=== PATIENT | female | born 1935 | race Caucasian/White ===

== ENCOUNTER 2017-07-14 09:57 | Inpatient (IN) | payer MEDICARE, OTHER ==
[~2017-07-14] VITALS: Ht 167.6 cm; Wt 55.9 kg
[2017-07-14] MEDS ORDERED: NS IV 500 ML 500 ML IV ONE (10:18)
[2017-07-14 10:27] VITALS: BP 141/107
--- NOTE | 2017-07-14 10:27 | ED Fall/Injury ---
General Stated Complaint: FALL Source: patient, family (son), EMS Exam Limitations: clinical condition History of Present Illness Time seen by provider: 10:14 Initial Comments Patient present to ER by EMS with chief complaint that she had a fall 6 days ago and had been doing okay walking around using her power chair has typical but having quite a bit of pain. Son reports that she had resisted going to see the doctor for it. She has a history of chronic bilateral hip disease and has not had any surgery done to them. He said she was doing fine last night when he helped her get to bed but this morning when he went to check on her she was not acting right and said that she needed to go to the ER area EMS reports they have given her 400 of the first liter of saline start an IV in her left antecubital space and 100 g of fentanyl. Patient is having some flaccid paralysis in her left arm which according the son is new. She has a history of congestive heart failure but no strokes. Patient denies any chest pain or shortness of breath. Son reports she's had occasional dry cough. Last known well time was about 2129 when she went to bed yesterday, 13 hours ago. 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 He says the patient refused to have anything done for. She did not feel that she would survive general anesthesia to have the surgery to have it removed. The family has been dressing it with gauze dressings. Allergies and Home Medications Allergies Coded Allergies: No Allergy Information Available (Unverified , 07/14/17) Constitutional: see HPI (patient is unable to give a meaningful review of symptoms. While) Past Cjwckgr-Rxjzzj-Skgemt Hx Patient Social History Alcohol Use: Denies Use Recreational Drug Use: No Smoking Status: Never a Smoker Physical Exam Vital Signs Vital Sign - Last 12Hours 07/14/17 10:27 Temp 98.5 Resp 16 B/P (MAP) 141/107 (118) Pulse Ox 95 O2 Delivery Nasal Cannula Capillary Refill : General Appearance: moderate distress HEENT: No pharynx normal (very dry oral mucous membranes), other (right eye days but will follow stimuli across midline with her eyes) Neck: non-tender, supple Cardiovascular: normal peripheral pulses, regular rate, rhythm, no JVD, other ( trace pedal edema) Respiratory: chest non-tender, lungs clear, normal breath sounds, no respiratory distress, no accessory muscle use Peripheral Pulses: 1+ Dorsalis Pedis (R), 1+ Left Dors-Pedis (L), 2+ Radial Pulses (R), 2+ Radial Pulses (L) Gastrointestinal: normal bowel sounds, non tender, soft, no organomegaly, no pulsatile mass Neurologic/Psychiatric: alert, other (oriented to self only answers one-word appropriate answers. Left arm flaccid paralysis.) Skin: normal color, warm/dry, other (4 x 6 cm irregular, erythematous plaque on the medial right lower extremity consistent with a skin cancer.) Thompson Coma Score Best Eye Response: (4) Open Spontaneously Best Verbal Response: (4) Confused Conversation Best Motor Response: (6) Obeys Commands Jesus Total: 14 Progress/Results/Core Measures Results/Orders Lab Results Laboratory Tests Test 07/14/17 11:15 07/14/17 11:55 07/14/17 12:11 Range/Units Urine Color YELLOW Urine Clarity CLEAR Urine pH 5 5-9 Urine Specific Point 1.020 1.016-1.022 Urine Protein 1+ H NEGATIVE Urine Glucose (UA) NEGATIVE NEGATIVE Urine Ketones NEGATIVE NEGATIVE Urine Nitrite NEGATIVE NEGATIVE Urine Bilirubin NEGATIVE NEGATIVE Urine Urobilinogen 1 NORMAL MG/DL Urine Leukocyte Esterase 1+ H NEGATIVE Urine RBC (Auto) NEGATIVE NEGATIVE Urine RBC NONE /HPF Urine WBC RARE /HPF Urine Squamous Epithelial Cells 2-5 /HPF Urine Crystals NONE /LPF Urine Bacteria TRACE /HPF Urine Casts PRESENT /LPF Urine Hyaline Casts 25-50 H /LPF Urine Mucus NEGATIVE /LPF Urine Culture Indicated NO White Blood Count 53.9 *H 4.3-11.0 10^3/uL Red Blood Count 3.82 L 4.35-5.85 10^6/uL Hemoglobin 11.2 L 11.5-16.0 G/DL Hematocrit 35 35-52 % Mean Corpuscular Volume 91 80-99 FL Mean Corpuscular Hemoglobin 29 25-34 PG Mean Corpuscular Hemoglobin Concent 32 32-36 G/DL Red Cell Distribution Width 14.9 H 10.0-14.5 % Platelet Count 348 130-400 10^3/uL Mean Platelet Volume 10.2 7.4-10.4 FL Neutrophils (%) (Auto) 95 H 42-75 % Lymphocytes (%) (Auto) 1 L 12-44 % Monocytes (%) (Auto) 4 0-12 % Eosinophils (%) (Auto) 0 0-10 % Basophils (%) (Auto) 0 0-10 % Neutrophils # (Auto) 51.1 H 1.8-7.8 X 10^3 Lymphocytes # (Auto) 0.5 L 1.0-4.0 X 10^3 Monocytes # (Auto) 2.2 H 0.0-1.0 X 10^3 Eosinophils # (Auto) 0.0 0.0-0.3 10^3/uL Basophils # (Auto) 0.1 0.0-0.1 10^3/uL Neutrophils % (Manual) 96 % Lymphocytes % (Manual) 0 % Monocytes % (Manual) 4 % Polychromasia SLIGHT Basophilic Stippling SLIGHT Crenated Cell SLIGHT Sodium Level 142 135-145 MMOL/L Potassium Level 4.4 3.6-5.0 MMOL/L Chloride Level 104 98-107 MMOL/L Carbon Dioxide Level 26 21-32 MMOL/L Anion Gap 12 5-14 MMOL/L Blood Urea Nitrogen 63 H 7-18 MG/DL Creatinine 0.93 0.60-1.30 MG/DL Estimat Glomerular Filtration Rate 58 BUN/Creatinine Ratio 68 Glucose Level 101 70-105 MG/DL Calcium Level 9.3 8.5-10.1 MG/DL Magnesium Level 2.2 1.8-2.4 MG/DL Total Bilirubin 0.5 0.1-1.0 MG/DL Aspartate Amino Transf (AST/SGOT) 38 H 5-34 U/L Alanine Aminotransferase (ALT/SGPT) 24 0-55 U/L Alkaline Phosphatase 162 H 40-136 U/L Troponin I < 0.30 <0.30 NG/ML Total Protein 5.8 L 6.4-8.2 GM/DL Albumin 2.5 L 3.2-4.5 GM/DL Prothrombin Time 15.1 H 12.2-14.7 SEC INR Comment 1.2 0.8-1.4 Activated Partial Thromboplast Time 25 24-35 SEC Lactic Acid Level 1.09 0.50-2.00 MMOL/L B-Type Natriuretic Peptide 845.4 H <100.0 PG/ML My Orders Orders - MERY,MILKA J Chest 1 View, Ap/Pa Only (07/14/17 10:18) BNP (07/14/17 10:18) Cbc With Automated Diff (07/14/17 10:18) Comprehensive Metabolic Panel (07/14/17 10:18) Lactic Acid Analyzer (07/14/17 10:18) Magnesium (07/14/17 10:18) Troponin I (07/14/17 10:18) Ua Culture If Indicated (07/14/17 10:18) Saline Lock/Iv-Start (07/14/17 10:18) Ns Iv 500 Ml (Sodium Chloride 0.9%) (07/14/17 10:18) Ekg Tracing (07/14/17 10:18) Pelvis/Anay Hips 5> Views (07/14/17 10:18) Ct Head Wo-R/O Stroke (07/14/17 10:27) Ct Angio Head/Neck (07/14/17 11:57) Manual Differential (07/14/17 11:55) Sputum Culture (07/14/17 12:16) Protime With Inr (07/14/17 12:16) Partial Thromboplastin Time (07/14/17 12:16) O2 (07/14/17 12:16) Saline Lock/Iv-Start (07/14/17 12:16) Cefepime Injection (Maxipime Injection) (07/14/17 12:30) Vital Signs Adult Sepsis Patie Q1H (07/14/17 12:16) Remove Rings In Anticipation O (07/14/17 12:16) Iohexol Injection (Omnipaque 350 Mg/Ml 1 (07/14/17 12:45) Ns (Ivpb) (Sodium Chloride 0.9% Ivpb Bag (07/14/17 12:45) Vancomycin Injection (Vancomycin Injecti (07/14/17 13:15) Medications Given in ED Current Medications Medications Dose Ordered Sig/Monserrat Route Start Time Stop Time Status Last Admin Dose Admin Cefepime HCl 2000 mg/Sodium Chloride 50 ml @ 100 mls/hr ONCE ONCE IV 07/14/17 12:30 07/14/17 12:59 DC 07/14/17 12:58 100 MLS/HR Iohexol 75 ml ONCE ONCE IV 07/14/17 12:45 12/23/17 12:46 DC 07/14/17 12:49 75 ML Sodium Chloride 100 ml ONCE ONCE IV 07/14/17 12:45 07/14/17 12:46 DC 07/14/17 12:50 100 ML Sodium Chloride 500 ml @ 0 mls/hr Q0M ONCE IV 07/14/17 10:18 07/14/17 10:22 DC 07/14/17 12:22 1,000 MLS/HR Vancomycin HCl 1000 mg/Sodium Chloride 250 ml @ 250 mls/hr ONCE ONCE IV 07/14/17 13:15 07/14/17 14:14 DC 07/14/17 13:52 250 MLS/HR Vital Signs/I&O Vital Sign - Last 12Hours 07/14/17 10:27 Temp 98.5 Resp 16 B/P (MAP) 141/107 (118) Pulse Ox 95 O2 Delivery Nasal Cannula Progress Note #1: Time: 10:30 Progress Note Concern for stroke given left arm paralysis and right eye gaze deviation however the last known well time was probably time. Bed since she was not normal when he checked this morning at 5:30. We'll also x-ray her hips looking for fracture. We'll also look for source of her fall by getting a urinalysis, lab work and chest x-ray. Progress Note #2: Time: 12:12 Progress Note Patient is been bradycardic since she arrived. The son says that she has routinely bradycardic per history. Son reports the patient wishes to be DO NOT RESUSCITATE. Progress Note #3: Time: 14:50 Progress Note We discussed that despite aggressive fluids and antibiotics the patient is not making any significant changes at this time and that it may be later down the line that if we can do anything to fix her problem that a comfort care or hospice consult would be reasonable. The son has discussed this at length with his mother in the past and she has desired comfort cares especially if nothing further can be done so they're very open to this possibility. Communicated these concerns with full and she asked for a palliative care consult in addition to her other workup. Diagnostic Imaging Diagonstic Imaging: Xray Plain Films/CT/US/NM/MRI: chest (1v) Comments VIA [facility]. [place], [place] NAME: SHAE HOLT J MED REC#: [id number] PT STATUS: REG ER : 1935 PHYSICIAN: MILKA ORDONEZ MD ADMIT DATE: 07/14/17/ER Draft Date of Exam:07/14/17 CHEST 1 VIEW, AP/PA ONLY INDICATION: Fall. FINDINGS: There is cardiomegaly. There is some venous congestion. There is patchy bibasilar infiltrates. There is a left pleural effusion. There is no pneumothorax. The mediastinum is unremarkable. IMPRESSION: Patchy bibasilar infiltrates and a left pleural effusion. Cardiomegaly and some central pulmonary venous congestion Dictated on workstation # [id number] Dict: 07/14/17 1055 Trans: 07/14/17 1058 [facility] [id number] Interpreted by: SATHISH GONZALEZ MD Electronically signed by: Reviewed: Reviewed by Me Diagonstic Imaging: CT Plain Films/CT/US/NM/MRI: head (c/o) Comments No acute intracranial hemorrhage, mass effect, tumor seen. NAME: SHAE HOLT [facility] REC#: [id number] PT STATUS: REG ER : 1935 PHYSICIAN: MILKA ORDONEZ MD ADMIT DATE: 07/14/17/ER Draft Date of Exam:07/14/17 CT HEAD WO-R/O STROKE Clinical indication: Patient status post fall this morning. Patient has altered mental status. Patient unable to move left arm. Exam: Axial CT scan of the brain performed without IV contrast. Comparison: None. Findings: There is no evidence of acute cerebral infarct, intracranial hemorrhage, or gross mass effect. There are a few patchy areas of low-attenuation white matter changes of both cerebral hemispheres, suspected to represent chronic small vessel ischemic disease. There is normal solorio-white matter distinction. The brain parenchymal volume appears appropriate for patient's age. There is no significant midline shift or herniation. There is atherosclerotic disease involving the intradural vertebral arteries and bilateral cavernous carotid arteries. There is no evidence of hydrocephalus. The basal cisterns are unremarkable. The skull, extracranial soft tissue, and orbits are unremarkable. The paranasal sinuses are unremarkable. Impression: 1: There is no gross CT evidence of acute cerebral infarct, intracranial hemorrhage, brain herniation, or hydrocephalus. If there is continued concern for acute cerebral infarct, then MRI of the brain would better evaluate. 2: Age-related brain parenchymal changes with chronic small vessel ischemic disease. Dictated on workstation # [id number] Dict: 07/14/17 1041 Trans: 07/14/17 1047 [facility] [id number] Interpreted by: ALANNAH VIGIL MD Electronically signed by: Reviewed: Reviewed by Me Diagonstic Imaging: Xray Plain Films/CT/US/NM/MRI: pelvis Comments VIA [facility]. [place], [place] NAME: SHAE HOLT [facility] REC#: [id number] PT STATUS: REG ER : 1935 PHYSICIAN: MILKA ORDONEZ MD ADMIT DATE: 07/14/17/ER Draft Date of Exam:07/14/17 PELVIS/ANAY HIPS 5> VIEWS INDICATION: Fall. FINDINGS: The bones are osteopenic. There are degenerative changes in the spine. There are marked degenerative changes in both hips. There is no fracture or dislocation. IMPRESSION: Severe degenerative changes in the hips bilaterally without acute fracture or dislocation. Degenerative changes in the spine. Dictated on workstation # [id number] Dict: 07/14/17 1055 Trans: 07/14/17 1058 [facility] [id number] Interpreted by: SATHISH GONZALEZ MD Electronically signed by: Reviewed: Reviewed by Me Diagonstic Imaging: CT (angio) Plain Films/CT/US/NM/MRI: c-spine, head Reviewed: Reviewed by Me Consults Consults : Consults Notes Dr. Ashby, neurology at [facility] discussed case lab imaging and findings and he agrees this does not sound like a stroke given her lack of cranial nerve involvement and 4 extremity paralysis. He would recommend we go ahead and get a CT angiogram to evaluate the basilar arteries but he can't give anything else would explain her symptoms from a stroke/neurologic perspective. He recommends work her up for a metabolic toxicity versus sepsis. Departure Communication (Admissions) Time/Spoke to Admitting Phy: 14:30 Communication Discussed case lab imaging's with Dr. Snowden. Discussed the wide complex QRS run the EMS mentioned. Discussed her bradycardia. She would like cardiology consulted. Time/Spoke to Consulting Phy: 14:35 Communication/Consulting Discussed case lab imaging and findings and he would like to see the strip from EMS. Impression Impression: Primary Impression: Fall Qualified Codes: W19.XXXA - Unspecified fall, initial encounter Additional Impressions: Sepsis Qualified Codes: A41.9 - Sepsis, unspecified organism History of skin cancer of unknown type Disposition: ADMITTED INPATIENT Condition: Stable Admissions Decision to Admit Reason: Admit from ER (General) Decision to Admit/Date: Jul 14, 2017 Time/Decision to Admit Time: 14:38 Departure-Patient Inst. Referrals: ISABELA SMITH MD (PCP/Family) Primary Care Physician Copy Copies To 1: ISABELA SMITH MD, TITUS J Jul 14, 2017 10:27
--- NOTE | 2017-07-14 10:48 | Diagnostic Imaging Report ---
Clinical indication: Patient status post fall this morning. Patient has altered mental status. Patient unable to move left arm. Exam: Axial CT scan of the brain performed without IV contrast. Comparison: None. Findings: There is no evidence of acute cerebral infarct, intracranial hemorrhage, or gross mass effect. There are a few patchy areas of low-attenuation white matter changes of both cerebral hemispheres, suspected to represent chronic small vessel ischemic disease. There is normal solorio-white matter distinction. The brain parenchymal volume appears appropriate for patient's age. There is no significant midline shift or herniation. There is atherosclerotic disease involving the intradural vertebral arteries and bilateral cavernous carotid arteries. There is no evidence of hydrocephalus. The basal cisterns are unremarkable. The skull, extracranial soft tissue, and orbits are unremarkable. The paranasal sinuses are unremarkable. Impression: 1: There is no gross CT evidence of acute cerebral infarct, intracranial hemorrhage, brain herniation, or hydrocephalus. If there is continued concern for acute cerebral infarct, then MRI of the brain would better evaluate. 2: Age-related brain parenchymal changes with chronic small vessel ischemic disease. Dictated by: Dictated on workstation # [id number]
--- NOTE | 2017-07-14 10:59 | Diagnostic Imaging Report ---
INDICATION: Fall. FINDINGS: There is cardiomegaly. There is some venous congestion. There is patchy bibasilar infiltrates. There is a left pleural effusion. There is no pneumothorax. The mediastinum is unremarkable. IMPRESSION: Patchy bibasilar infiltrates and a left pleural effusion. Cardiomegaly and some central pulmonary venous congestion Dictated by: Dictated on workstation # [id number]
--- NOTE | 2017-07-14 10:59 | Diagnostic Imaging Report ---
INDICATION: Fall. FINDINGS: The bones are osteopenic. There are degenerative changes in the spine. There are marked degenerative changes in both hips. There is no fracture or dislocation. IMPRESSION: Severe degenerative changes in the hips bilaterally without acute fracture or dislocation. Degenerative changes in the spine. Dictated by: Dictated on workstation # [id number]
[2017-07-14 11:29] LABS: BILIRUBIN,URINE NEGATIVE (NEGATIVE); KETONES,URINE NEGATIVE (NEGATIVE); LEUKOCYTE ESTERASE ,URINE 1+ (NEGATIVE); NITRITE,URINE NEGATIVE (NEGATIVE); PH,URINE 5 (5-9); PROTEIN,URINE 1+ (NEGATIVE); UROBILINOGEN,URINE 1 MG/DL (NORMAL)
[2017-07-14 11:38] LABS: WBC,URINE RARE /HPF
[2017-07-14 11:39] LABS: HYALINE CASTS, URINE 25-50 /LPF
[2017-07-14 12:07] LABS: BASOPHILS # (AUTO) 0.1 10^3/uL (0.0-0.1); BASOPHILS % (AUTO) 0 % (0-10); EOSINOPHILS % (AUTO) 0 % (0-10); LYMPHOCYTES # (AUTO) 0.5 X 10^3 (1.0-4.0); LYMPHOCYTES % (AUTO) 1 % (12-44); MEAN CORPUSCULAR HEMOGLOBIN 29 PG (25-34); MEAN CORPUSCULAR HGB CONC 32 G/DL (32-36); MEAN CORPUSCULAR VOLUME 91 FL (80-99); MEAN PLATELET VOLUME 10.2 FL (7.4-10.4); MONOCYTES # (AUTO) 2.2 X 10^3 (0.0-1.0); MONOCYTES % (AUTO) 4 % (0-12); NEUTROPHILS # (AUTO) 51.1 X 10^3 (1.8-7.8); NEUTROPHILS % (AUTO) 95 % (42-75); PLATELET COUNT 348 10^3/uL (130-400); RED BLOOD COUNT 3.82 10^6/uL (4.35-5.85); RED CELL DISTRIBUTION WIDTH 14.9 % (10.0-14.5)
[2017-07-14 12:09] LABS: WHITE BLOOD COUNT 53.9 10^3/uL (4.3-11.0)
[2017-07-14 12:25] LABS: ALANINE AMINOTRANSFERASE 24 U/L (0-55); ALBUMIN 2.5 GM/DL (3.2-4.5); ANION GAP 12 MMOL/L (5-14); ASPARTATE AMINO TRANSFERASE 38 U/L (5-34); BILIRUBIN,TOTAL 0.5 MG/DL (0.1-1.0); BLOOD UREA NITROGEN 63 MG/DL (7-18); BUN/CREATININE RATIO 68; CALCIUM 9.3 MG/DL (8.5-10.1); CARBON DIOXIDE 26 MMOL/L (21-32); CHLORIDE 104 MMOL/L (98-107); CREATININE SERUM 0.93 MG/DL (0.60-1.30); GFR ESTIMATED 58; GLUCOSE 101 MG/DL (70-105); MAGNESIUM 2.2 MG/DL (1.8-2.4); POTASSIUM 4.4 MMOL/L (3.6-5.0); SODIUM 142 MMOL/L (135-145); TOTAL PROTEIN 5.8 GM/DL (6.4-8.2)
[2017-07-14 12:30] LABS: INR 1.2 (0.8-1.4); PROTHROMBIN TIME PATIENT 15.1 SEC (12.2-14.7)
[2017-07-14 12:30] LABS: CRENATED RBC SLIGHT; LYMPHOCYTES % (MANUAL) 0 %; NEUTROPHILS % (MANUAL) 96 %; POLYCHROMASIA SLIGHT
[2017-07-14] MEDS ORDERED: CEFEPIME INJECTION 2,000 MG in NS (IVPB) 50 ML IV ONE (12:30)
[2017-07-14 12:31] LABS: TROPONIN I < 0.30 NG/ML (<0.30)
[2017-07-14] MEDS ORDERED: NS 100 ML (IVPB) BAG IV ONE (12:45)
[2017-07-14] MEDS ORDERED: IOHEXOL 350 MG/ML 100 ML (OMNIPAQUE 350) VIAL IV ONE (12:45)
[2017-07-14] MEDS ORDERED: VANCOMYCIN INJECTION 1,000 MG in NS (IVPB) 250 ML IV ONE (13:15)
--- NOTE | 2017-07-14 13:44 | Diagnostic Imaging Report ---
Clinical indication: Patient with left-sided weakness. Patient not very responsive. Patient has history of COPD. Exams: 1: Head CT with IV contrast. 2: CT angiogram of the head and neck performed with 100 cc of Omnipaque 350 IV contrast. Sagittal and coronal MIP reformations were created for better visualization of vascular anatomy. Comparison: None. Findings: Head CT: Stable appearance of the head CT with a few patchy areas of low-attenuation white matter changes involving both cerebral hemispheres, likely representing chronic small vessel ischemic disease. The brain parenchymal volume appears appropriate for patient's age. There is no evidence of intracranial hemorrhage, brain herniation, or abnormal IV contrast enhancement. The remainder of this exam shows no significant interval change compared to the prior study of comparison. CT angiogram: There is atherosclerotic disease involving the aortic arch and proximal great vessels. There is also atherosclerotic disease involving the bilateral carotid arteries. There is mild stenosis of the origin of the left subclavian artery and left common carotid artery due to atherosclerotic disease. There is also mild stenosis at the origin of the brachiocephalic artery and origin of the right subclavian artery due to atherosclerotic disease. Otherwise the remainder of the bilateral CCA are patent. There is motion artifact obscuring the proximal right common carotid artery and atherosclerotic disease in the region cannot be completely excluded, although it is patent. There is dense atherosclerotic plaque involving the left ICA bulb with severe narrowing. There is mild narrowing of the right ICA bulb. The remainder of the bilateral cervical vertebral arteries are patent as visualized. There is significant motion artifact which obscures the mid and distal bilateral CCAs, and bilateral vertebral arteries. The origin of the left vertebral artery shows moderate to severe stenosis with atherosclerotic disease. The remainder of the bilateral cervical vertebral arteries are patent, as visualized, but there is significant artifact obscuring their appearance. There is atherosclerotic disease involving the bilateral cavernous carotid arteries with motion artifact greatly limiting evaluation. There is concern for a stenosis in the regions of the bilateral cavernous carotid arteries, but unable to quantify due to artifact. The bilateral MCAs and their branches, bilateral ACAs and their branches, bilateral inspector floor and their branches, basilar artery and intradural vertebral arteries are patent, as visualized. There is a small right A1 WINSOME. The dural venous sinuses show no significant abnormality. There is emphysematous lung disease involving the visualized portions of both upper lobes. There is atelectasis involving the posterior aspect of the left upper lobe. The neck soft tissue structures show no other significant abnormality. Fluid-filled esophagus is noted. Impression: 1: Limited exam due to patient motion artifact which greatly limits evaluation of the neck and intracranial vascular structures, as described above. 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 3: There is concern for stenosis in the regions of the bilateral cavernous carotid arteries which cannot be quantified due to motion artifact. 4: Stable CT scan of the brain with no interval acute process. There is no abnormal IV contrast enhancement. Dictated by: Dictated on workstation # [id number]
[2017-07-14 15:18] VITALS: BP 184/61
[2017-07-14] MEDS ORDERED: NS IV 1000 ML 1,000 ML ONE (15:45)
[2017-07-14] MEDS ORDERED: PIPERACILLIN/TAZOBACTAM 4.5 GM/NS 100 ML IV NR ×2 (16:32)
[2017-07-14] MEDS ORDERED: NS IV 1000 ML 1,000 ML IV SCH (16:45)
[2017-07-14] MEDS ORDERED: ONDANSETRON 4 MG/2 ML (SDV) Z0FRAN IVP PRN ×2 (16:45→22:30)
[2017-07-14] MEDS: morphine INJ 4 MG/ML 1 ML (VIAL/SYRINGE) IVP PRN ×3 (17:08→22:07)
[2017-07-14] MEDS: ASPIRIN E.C. 81 MG (ECOTRIN) TAB PO SCH (17:15)
[2017-07-14 19:47] VITALS: BP 192/53
[2017-07-14] MEDS ORDERED: NITROGLYCERIN 2% OINT 1 GM UNIT DOSE PACKET TOP PRN (20:15)
[2017-07-14] MEDS ORDERED: hydrALAZINE (APESOLINE) 20 MG/ML VIAL IV PRN (21:45)
[2017-07-14] MEDS: PIPERACILLIN/TAZOBACTAM 4.5 GM/NS 100 ML IVPB IV SCH ×2 (22:07)
--- NOTE | 2017-07-14 22:22 | History & Physical-Hospitalist ---
HPI History of Present Illness: HPI/Chief Complaint Pt is an 81yoCF with a PMH of HTN, CAD, and untreated skin cancer who presented to the ER with CC of confusion following a fall on 07/08. Her son is at bedside and provides history as patient is unresponsive. He states his brother lives with pt and noted this morning that she was more confused and pt elected to go to ER today though she had been refusing prior to this. In the ER she was evaluated for a possible CVA though workup was unrevealing. CXR revealed bilateral infiltrates and she was found to have a WBC 53.9 RR of 33 and Temperatures as low at 94 meeting sepsis criteria. She was started on Cefepime originally in the ED and transitioned to Vanc/Zosyn for broader coverage. Review of telemetry revealed rates as low as 27 though mostly in the 30-40s. Of note EMS noted a wide complex QRS on transport as well. Source: family Exam Limitations: clinical condition Date Seen 07/14/17 Time Seen by Provider: 10:04 Attending Physician Lupe Snowden MD PCP Jose Luis Pedraza MD Referring Physician Date of Admission Jul 14, 2017 at 14:40 Home Medications & Allergies Home Medications Reviewed patient Home Medication Reconciliation Form Allergies Allergies Coded Allergies No Allergy Information Available (Paoqkibobn13/23/17) Past Zwlameq-Mszeqd-Qbugvi Hx Patient Social History Employed/Student: retired Alcohol Use: Denies Use Recreational Drug Use: No Smoking Status: Former Smoker Former Smoker, Quit: Jul 23, 2001 Type Used: Cigarettes Physical Abuse Screen: No Sexual Abuse: No Recent Foreign Travel: No Contact w/other who traveled: No Recent Hopitalizations: No Recent Infectious Disease Expo: No Immunizations Up To Date Pediatric: No Seasonal Allergies Seasonal Allergies: No Surgeries No Respiratory Yes (USES HOME O2 AT HS) Currently Using CPAP: No Currently Using BIPAP: No Cardiovascular Yes Coronary Artery Disease, Heart Attack, Hypertension Neurological No Reproductive System : No Genitourinary No Gastrointestinal No Musculoskeletal Yes Arthritis Endocrine History of Endocrine Disorders: No HEENT History of HEENT Disorders: No Cancer Yes Skin Did You Recieve Any Treatments: No Cancer Comment: PT. REFUSED Psychosocial History of Psychiatric Problem: No Integumentary History of Skin or Integumenta: Yes (SKIN CANCER RIGHT LOWER LEG) Blood Transfusions History of Blood Disorders: No Family Medical History Significant Family History: No Pertinent Family Hx Review of Systems ROS-Unable to Obtain: Unresponsive Physical Exam Physical Exam Vital Signs Vital Sign - Last 12Hours Capillary Refill : Less Than 3 Seconds General Appearance: Chronically ill, Moderate Distress HEENT: PERRL/EOMI, No Scleral Icterus (L), No Scleral Icterus (R) Neck: No Thyromegaly Respiratory: Accessory Muscle Use, Rales, Respiratory Distress Cardiovascular: No Murmur, Normal Peripheral Pulses, Bradycardia Gastrointestinal: Normal Bowel Sounds, Non Tender, Soft Neurologic/Psychiatric: Other (minimally responsive to physicial stimuli, no response to verbal) Results Results/Procedures Lab Laboratory Tests 07/14/17 11:55 Radiology PELVIS/ANAY HIPS 5> VIEWS INDICATION: Fall. FINDINGS: The bones are osteopenic. There are degenerative changes in the spine. There are marked degenerative changes in both hips. There is no fracture or dislocation. IMPRESSION: Severe degenerative changes in the hips bilaterally without acute fracture or dislocation. Degenerative changes in the spine. Date of Exam: 07/14/17 CHEST 1 VIEW, AP/PA ONLY INDICATION: Fall. FINDINGS: There is cardiomegaly. There is some venous congestion. There is patchy bibasilar infiltrates. There is a left pleural effusion. There is no pneumothorax. The mediastinum is unremarkable. IMPRESSION: Patchy bibasilar infiltrates and a left pleural effusion.Cardiomegaly and some central pulmonary venous congestion Date of Exam: 07/14/17 CT HEAD WO-R/O STROKE Impression: 1: There is no gross CT evidence of acute cerebral infarct, intracranial hemorrhage, brain herniation, or hydrocephalus. If there is continued concern for acute cerebral infarct, then MRI of the brain would better evaluate. 2: Age-related brain parenchymal changes with chronic small vessel ischemic disease. Date of Exam: 07/14/17 CT ANGIO HEAD/NECK Clinical indication: Patient with left-sided weakness. Patient not very responsive. Patient has history of COPD. Exams: 1: Head CT with IV contrast. 2: CT angiogram of the head and neck performed with 100 cc of Omnipaque 350 IV contrast. Sagittal and coronal MIP reformations were created for better visualization of vascular anatomy. Impression: 1: Limited exam due to patient motion artifact which greatly limits evaluation of the neck and intracranial vascular structures, as described above. 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 3: There is concern for stenosis in the regions of the bilateral cavernous carotid arteries which cannot be quantified due to motion artifact. 4: Stable CT scan of the brain with no interval acute process. There is no abnormal IV contrast enhancement. Assessment/Plan Admission Diagnosis Severe Sepsis Diagnosis/Problems Diagnosis/Problems (1) Severe sepsis Status: Acute Assessment & Plan: Hypothermia with leukocytosis and pna on CXR Acute resp distress and transaminitis- end organ involvement No hypotension so no indication for bolus Cultures obtained in ER Started originally on Cefepime in ER Transitioned to Vanc/Zosyn for broader coverage Discussed with family (Son, Avinash- reported DPOA and Moe, son) would like to continue abx but otherwise direct care towards comfort only (2) Bilateral pneumonia Status: Acute Assessment & Plan: Cultures sent Abx as above MAT protocol Qualifiers: Qualified Codes: J18.9 - Pneumonia, unspecified organism (3) Acute respiratory distress Status: Acute Assessment & Plan: IV morphine prn air hunger IV ativan prn agitation MAT protocol Patient is a DNI/DNR (4) CAD (coronary artery disease) Status: Chronic Assessment & Plan: Cardiology consulted, appreciate recs Qualifiers: Qualified Codes: I25.10 - Atherosclerotic heart disease of [place] coronary artery without angina pectoris (5) Bradycardia Assessment & Plan: History of bracycardia in the 50s Dropping as low as 27 and consistently in the 30s currently Cardiology consulted, appreciate recs (6) Essential (primary) hypertension Assessment & Plan: prn nitro paste Prn Hydralazine (7) Counseling regarding end of life decision making Assessment & Plan: Discussed very poor prognosis with sons (Moe and Avinash) as above Recommended transitioning towards comfort measures Have elected comfort measures only with except of continued IV abx Comfort care order set placed Time spent evaluating patient, coordinating care plans, discussing with multiple family members about severity of illness was from 0958 to 1101. Clinical Quality Measures DVT/VTE Risk/Contraindication: Risk Factor Score Per Nursin RFS Level Per Nursing on Admit: 4+=Very High LUPE SNOWDEN MD Jul 14, 2017 10:22 pm
[2017-07-14] MEDS ORDERED: RT-ALBUTEROL/IPRATROPIUM 3 ML (DUONEB) VIAL INH PRN (22:30)
[2017-07-14] MEDS ORDERED: PROMETHAZINE INJ 25 MG/ML (PHENERGAN) AMP IVP PRN (22:30)
[2017-07-14] MEDS ORDERED: ARTIFICAL TEARS 0.4 ML UNIT DOSE (REFRESH PLUS) OU PRN (22:30)
[2017-07-14] MEDS ORDERED: SALIVA STIMULANT MOUTH SPRAY (BIOTENE) 1.5 OZ MM PRN (22:30)
[2017-07-14] MEDS ORDERED: LORazepam INJ 2 MG/ML (ATIVAN) VIAL IVP PRN (22:30)
[2017-07-14] MEDS ORDERED: ARTIFICIAL TEARS OINT (LACRI-LUBE) 3.5 GM TUBE OU PRN (22:30)
[2017-07-14] MEDS ORDERED: SCOPOLAMINE 1.5 MG (TRANSDERM-SCOP) PATCH TOP SCH (22:30)
[2017-07-14] MEDS ORDERED: GLYCOPYRROLATE 0.2 MG/ML (ROBINUL) 2 ML VIAL IV PRN (22:30)
[2017-07-15] MEDS: morphine INJ 4 MG/ML 1 ML (VIAL/SYRINGE) IV PRN ×3 (00:25→14:39)
[2017-07-15] MEDS: PIPERACILLIN/TAZOBACTAM 4.5 GM/NS 100 ML IVPB IV SCH ×2 (06:01)
[2017-07-15] MEDS: ASPIRIN E.C. 81 MG (ECOTRIN) TAB PO SCH (07:44)
[2017-07-15] MEDS ORDERED: VANCOMYCIN 750 MG/NS 250 ML IVPB IV SCH ×2 (09:00)
[2017-07-15] MEDS ORDERED: LISI2.5T PO (09:50)
--- NOTE | 2017-07-15 13:59 | Consultation-Cardiology ---
HPI-Cardiology Cardiology Consultation: Date of Consultation 07/15/17 Time Seen by Provider: 13:10 Date of Admission Attending Physician Samaria Snowden MD Admitting Physician Jose Luis Pedraza MD Consulting Physician MIMI CRESPO MD, MA, FACP, FACC, FSCAI, CCDS HPI: Chief Complaint: Reason for consultation: Bradycardia 81 yo woman who has been unresponsive since admission. Not able to provide any history. History obtained from talking to the ER physician yesterday and to the family today (including one of her sons). She has progressive malaise and weakness and mental deterioration over the course of past two weeks or so. Has had poor oral intake. Has not reported chest pains. Has not had syncope. Has not had swelling Review of Systems-Cardiology Review of Systems Constitutional: other (A review of systems is not possible from the patient because she is unresponsive. To the extent it could be obtained from the family is described above under HPI) RTI-Hsbdza-Wrffuu Hx Patient Social History Employed/Student: retired Alcohol Use: Denies Use Recreational Drug Use: No Smoking Status: Former Smoker Type Used: Cigarettes Recent Foreign Travel: No Recent Infectious Disease Expo: No Physical Abuse Screen: No Sexual Abuse: No Past Medical History PMH As described under Assessment. Family Medical History Family Medical History: No fam h/o of early CAD or SCD Allergies and Home Medications Allergies Coded Allergies: No Allergy Information Available (Unverified , 07/14/17) Home Medications Lisinopril 2.5 Mg Tablet, 2.5 MG PO BID, (Reported) Physical Exam-Cardiology Physical Exam Vital Signs/I&O Vital Sign - Last 12Hours 07/15/17 07/15/17 07:30 08:53 O2 Delivery OxyMask Nasal Cannula O2 Flow Rate 6.00 1.00 Intake and Output 07/15/17 00:00 Intake Total 900 ml Output Total 575 ml Balance 325 ml Capillary Refill : Less Than 3 Seconds Constitutional: other (unreponsive; thin-appearing ) HEENT: PERRL, EOMI Neck: carotid pulses are 2 + bilaterally, with good upstrokes Respiratory: accessory muscle use, other (fair bilat air entry; dimished air entry at the bases) Cardiovascular: regular rate-rhythm, S1 and S2, systolic murmur (faint KRISTIN ) Gastrointestinal: No tender, soft, No guarding, No rebound, audible bowel sounds Extremities: No clubbing, No cyanosis, No significant edema Neurologic/Psychiatric: oriented x 3, grossly intact, power is 5/5 both on sides Skin: No rash on exposed areas, No ulcerations on exposed areas Data Review Labs Microbiology 07/14/17 Blood Culture - Preliminary, Resulted No growth Laboratory Tests 07/14/17 11:55 A/P-Cardiology Assessment/Admission Diagnosis Unresponsiveness, probably due to septicemia Septicemia of unknown origin Complete heart block (duration unknown) CAD, by history. Family reports a h/o ND in in the H/o CHF, apparently systolic. Son reports a h/o a "weak" heart on an echo study ordered by his pcp several years ago Advanced cerebrovascular disease, based on CT scanning of 07/14/17 Hypertension Comfort-care status, per family request Discussion and Recomendations I had a detailed discussion with her family and explained patient's CV issues. Family has requested DNR and comfort-care status only. Given multiple advance comorbidities and poor prognosis, this seems reasonable Clinical Quality Measures DVT/VTE Risk/Contraindication: Risk Factor Score Per Nursin RFS Level Per Nursing on Admit: 4+=Very High MIMI CRESPO MD FACP FAC CCDS Jul 15, 2017 13:59
--- NOTE | 2017-07-15 14:01 | Progress Note-Hospitalist ---
Subjective HPI/CC On Admission Date Seen by Provider: Jul 15, 2017 Time Seen by Provider: 13:30 Pt is an 81yoCF with a PMH of HTN, CAD, and untreated skin cancer who presented to the ER with CC of confusion following a fall on 07/08. Her son is at bedside and provides history as patient is unresponsive. He states his brother lives with pt and noted this morning that she was more confused and pt elected to go to ER today though she had been refusing prior to this. In the ER she was evaluated for a possible CVA though workup was unrevealing. CXR revealed bilateral infiltrates and she was found to have a WBC 53.9 RR of 33 and Temperatures as low at 94 meeting sepsis criteria. She was started on Cefepime originally in the ED and transitioned to Vanc/Zosyn for broader coverage. Review of telemetry revealed rates as low as 27 though mostly in the 30-40s. Of note EMS noted a wide complex QRS on transport as well. Subjective/Events-last exam patient is completely unresponsive, appears to be comfortable. family is in the room Objective Exam Vital Signs Vital Sign - Last 12Hours Capillary Refill : Less Than 3 Seconds General Appearance: Chronically ill Respiratory: Lungs Clear, Accessory Muscle Use, Decreased Breath Sounds Cardiovascular: Bradycardia, Systolic Murmur, Irregularly Irregular Gastrointestinal: Soft Extremity: No Pedal Edema Neurologic/Psychiatric: Other (unresponsive) Assessment/Plan Assessment and Plan Assess & Plan/Chief Complaint (1) Severe sepsis Status: Acute Assessment & Plan: Hypothermia with leukocytosis and pna on CXR Acute resp distress and transaminitis- end organ involvement No hypotension so no indication for bolus Cultures obtained in ER Started originally on Cefepime in ER Transitioned to Vanc/Zosyn -we'll discontinue all antibiotics Discussed with family (Son, Avinash- reported DPOA and Moe, son) would like to continue abx but otherwise direct care towards comfort only (2) Bilateral pneumonia Status: Acute Assessment & Plan: Cultures sent MAT protocol if needed Qualifiers: Qualified Codes: J18.9 - Pneumonia, unspecified organism (3) Acute respiratory distress Status: Acute Assessment & Plan: IV morphine prn air hunger IV ativan prn agitation MAT protocol Patient is a DNI/DNR (4) CAD (coronary artery disease) Status: Chronic Assessment & Plan: Cardiology consulted, appreciate recs Qualifiers: Qualified Codes: I25.10 - Atherosclerotic heart disease of [place] coronary artery without angina pectoris (5) Bradycardia Assessment & Plan: History of bracycardia in the 50s Dropping as low as 27 and consistently in the 30s currently Cardiology consulted, appreciate recs (6) Essential (primary) hypertension Assessment & Plan: prn nitro paste Prn Hydralazine (7) Counseling regarding end of life decision making Assessment & Plan: terminal -currently on comfort care JAIRO GOODSON MD Jul 15, 2017 2:01 pm
[2017-07-16] MEDS ORDERED: TROUGH ORDER-PHARMACY XX NR (08:00)
== END 2017-07-15 23:58 | disposition expired | DRG 871 ==
LOC: ER 09:58 → 4TH 14:40
PROVIDERS: ADMIT Family Medicine; ATTEND Family Medicine
DX: A41.9 Sepsis, unspecified organism (principal); J18.9 Pneumonia, unspecified organism; I50.20 Unspecified systolic (congestive) heart failure; G83.24 Monoplegia of upper limb affecting left nondominant side; I44.2 Atrioventricular block, complete; R40.20 Unspecified coma; R00.1 Bradycardia, unspecified; Z66 Do not resuscitate; Z51.5 Encounter for palliative care; C44.702 Unspecified malignant neoplasm of skin of right lower limb, including hip; I10 Essential (primary) hypertension; I25.10 Atherosclerotic heart disease of native coronary artery without angina pectoris; M47.9 Spondylosis, unspecified; Z87.891 Personal history of nicotine dependence
CPT/HCPCS: 36415; 51702; 70450; 70496; 70498; 71010; 73523; 80053; 81000; 83605; 83735; 83880; 84484; 85007; 85027; 85610; 85730; 87040; 93005; 94640; 94760